=== PATIENT | male | born 1945 | race Caucasian/White ===

== ENCOUNTER 2019-01-29 07:17 | Inpatient (IN) | payer MEDICARE, BC ==
[~2019-01-29 07:17] MED LIST: Morphine 2 MG/ML Syringe IVPUSH PRN
[2019-01-29] MEDS: Lactated Ringers 1,000 ML IV SCH ×3 (07:45→21:30)
[2019-01-29] MEDS ORDERED: Bupivacaine 0.5% 30 ML SDV ONE (08:10)
--- NOTE | 2019-01-29 08:26 | PCM.PREANE ---
Preanesthetic Assessment - Anesthesia/Transfusion/Family Hx Anesthesia History: Prior Anesthesia Without Reaction Family History of Anesthesia Reaction: No Transfusion History: No Prior Transfusion(s) Intubation History: Unknown - Review of Systems General: No Symptoms Pulmonary: No Symptoms Cardiovascular: No Symptoms Gastrointestinal: No Symptoms Neurological: No Symptoms Other: Reports: None - Physical Assessment Vital Signs: Last Vital Signs Temp 36.3 C 01/29/19 07:30 Pulse 64 01/29/19 07:30 Resp 16 01/29/19 07:30 BP 134/85 01/29/19 07:30 Pulse Ox 99 01/29/19 07:30 Height: 5 ft 8 in Weight: 88.451 kg ASA Class: 2 Mental Status: Alert & Oriented x3 Airway Class: Mallampati = 2 Dentition: Reports: Normal Dentition, [place](s) (all upper teeth) Thyro-Mental Finger Breadths: 3 Mouth Opening Finger Breadths: 3 ROM/Head Extension: Limited/Partial Lungs: Clear to Auscultation, Normal Respiratory Effort Cardiovascular: Regular Rate, Regular Rhythm - Allergies Allergies/Adverse Reactions: Allergies Allergy/AdvReac Type Severity Reaction Status Date / Time oxycodone AdvReac Dizziness Verified 01/23/19 13:31 - Blood Blood Available: No - Anesthesia Plan Pre-Op Medication Ordered: None - Acknowledgements Anesthesia Type Planned: Spinal (general anesthesia back-up plan) Pt an Appropriate Candidate for the Planned Anesthesia: Yes Alternatives and Risks of Anesthesia Discussed w Pt/Guardian: Yes Pt/Guardian Understands and Agrees with Anesthesia Plan: Yes PreAnesthesia Questionnaire HEENT History: Reports: Allergic Rhinitis, Other (See Below) Other HEENT History: glasses only for driving Cardiovascular History: Reports: High Cholesterol Respiratory History: Reports: None Gastrointestinal History: Reports: None Genitourinary History: Reports: BPH Musculoskeletal History: Reports: Fracture, Osteoarthritis (bilateral knees) Other Musculoskeletal History: hx fx ankle Neurological History: Reports: None Psychiatric History: Reports: None Endocrine/Metabolic History: Reports: None Hematologic History: Reports: None Immunologic History: Reports: None Oncologic (Cancer) History: Reports: None Dermatologic History: Reports: None - Past Surgical History Head Surgeries/Procedures: Reports: None HEENT Surgical History: Reports: Cataract Surgery Cardiovascular Surgical History: Reports: None Respiratory Surgical History: Reports: None GI Surgical History: Reports: Hernia, Inguinal Male Surgical History: Reports: None Endocrine Surgical History: Reports: None Neurological Surgical History: Reports: None Musculoskeletal Surgical History: Reports: Arthroscopic Knee Oncologic Surgical History: Reports: None Dermatological Surgical History: Reports: None - SUBSTANCE USE Smoking Status *Q: Former Smoker Tobacco Use Within Last Twelve Months: No Recreational Drug Use History: No - HOME MEDS Home Medications: Home Meds Cetirizine HCl [Zyrtec] 10 mg PO DAILY 01/23/19 [History] - CURRENT (IN HOUSE) MEDS Current Meds: Current Medications Discontinued Medications Bupivacaine HCl (Marcaine 0.5%) Confirm Administered Dose 30 ml .ROUTE .STK-MED ONE Stop: 01/29/19 08:11 Tranexamic Acid (Cyklokapron) Confirm Administered Dose 1,000 mg .ROUTE .STK- MED ONE Stop: 01/29/19 08:11
[2019-01-29] MEDS ORDERED: Midazolam 1 MG/ML 2 ML SDV ONE (08:31)
[2019-01-29] MEDS ORDERED: Propofol 200 MG/20 ML SDV ONE ×5 (08:31→11:17)
[2019-01-29] MEDS ORDERED: fentaNYL 100 MCG/2 ML SDV ONE (08:31)
[2019-01-29] MEDS ORDERED: Sodium Chloride 0.9% 20 ML ONE (09:40)
[2019-01-29] MEDS ORDERED: ceFAZolin 1 GM Vial ONE (09:40)
[2019-01-29] MEDS ORDERED: Ropivacaine 49.25 ML, Ketorolac 30 MG, EPINEPHrine 0.5 MG, cloNIDine 80 MCG in Sodium C... INJECT ONE (09:45)
[2019-01-29] MEDS ORDERED: ePHEDrine 50 MG/ML SDV ONE (09:57)
[2019-01-29] MEDS ORDERED: Phenylephrine/Normal Saline 100 MCG/ML 10 ML Syringe ONE (10:18)
[2019-01-29] MEDS ORDERED: Sodium Chloride 0.9% 10 ML Syringe FLUSH PRN (11:46)
[2019-01-29] MEDS ORDERED: Aluminum Hydroxide/Magnesium Hydroxide/Simethicone Susp 30 ML Cup PO PRN (11:46)
[2019-01-29] MEDS ORDERED: Docusate Sodium 100 MG Cap PO PRN (11:46)
[2019-01-29] MEDS ORDERED: Bisacodyl 10 MG Supp RECTAL PRN (11:46)
[2019-01-29] MEDS ORDERED: Ondansetron 4 MG/2 ML SDV IVPUSH PRN (11:46)
[2019-01-29] MEDS ORDERED: diphenhydrAMINE 25 MG Cap PO PRN (11:46)
[2019-01-29] MEDS ORDERED: Sodium Chloride 0.9% 2.5 ML Syringe FLUSH PRN (11:46)
[2019-01-29] MEDS ORDERED: fentaNYL 100 MCG/2 ML SDV IVPUSH PRN (11:58)
[2019-01-29] MEDS ORDERED: EPINEPHrine 1:10,000 1 MG/10 ML Syringe IVPUSH PRN (11:58)
[2019-01-29] MEDS ORDERED: Atropine 0.1 MG/ML 10 ML Syringe IVPUSH PRN ×2 (11:58)
[2019-01-29] MEDS ORDERED: Albuterol 0.083% 2.5 MG/3 ML Neb Soln NEB PRN (11:58)
[2019-01-29] MEDS ORDERED: Naloxone 0.4 MG/ML Syringe IVPUSH PRN (11:58)
[2019-01-29] MEDS ORDERED: 50% Dextrose in Water 50 ML Syringe IVPUSH PRN (11:58)
[2019-01-29] MEDS ORDERED: Acetaminophen/HYDROcodone 325-5 MG Tab PO PRN (12:03)
--- NOTE | 2019-01-29 12:09 | CR ---
Left knee: AP and lateral views left knee were obtained. Comparison: Prior left knee radiographic study of 12/25/18. Medial hemiarthroplasty is seen. Components are aligned. Soft tissue air is noted. Skin cathy are present. Underlying bony structures are intact. Impression: Satisfactory radiographic appearance of recently placed hemiarthroplasty within the left knee. Diagnostic code #2 MTDD
--- NOTE | 2019-01-29 12:16 | PCM.POSTAN ---
POST ANESTHESIA ASSESSMENT - MENTAL STATUS Mental Status: Alert, Oriented - VITAL SIGNS Vital Signs: Last Vital Signs Temp 36.6 C 01/29/19 11:32 Pulse 69 01/29/19 12:12 Resp 16 01/29/19 12:12 BP 126/67 01/29/19 12:12 Pulse Ox 96 01/29/19 12:12 - RESPIRATORY Respiratory Status: Respiratory Rate WNL, Airway Patent, O2 Saturation Stable - CARDIOVASCULAR CV Status: Pulse Rate WNL, Blood Pressure Stable - GASTROINTESTINAL GI Status: No Symptoms - PAIN Pain Score: 4 - POST OP HYDRATION Hydration Status: Adequate & Stable
--- NOTE | 2019-01-29 12:24 | PCM.OPNOTE ---
- General Post-Op/Procedure Note Date of Surgery/Procedure: 01/29/19 Operative Procedure(s): left knee pka Pre Op Diagnosis: left knee primary osteoarthritis Post-Op Diagnosis: Same Anesthesia Technique: Combo Spinal/Epidural, Moderate Sedation Primary Surgeon: Sanjiv Judd Credit Processor: Jerilyn Rodrigez EBL in mLs: 150 Complications: None Condition: Good Free Text/Narrative:: Intake & Output 01/28/19 01/29/19 01/29/19 22:59 06:59 14:59 Intake Total 1600 Balance 1600
[2019-01-29] MEDS: traMADol 50 MG Tab PO PRN (13:07)
[2019-01-29] MEDS: Ketorolac 30 MG/ML SDV IVPUSH SCH ×2 (18:06→23:09)
[2019-01-29] MEDS: ceFAZolin 2 GM in Premix Bag 1 BAG IV SCH (18:07)
--- NOTE | 2019-01-29 18:20 | OR ---
SURGEON: Sanjiv Judd DATE OF PROCEDURE: 01/29/2019 PREOPERATIVE DIAGNOSIS: Left knee primary osteoarthritis. POSTOPERATIVE DIAGNOSIS: Left knee primary osteoarthritis. PROCEDURE: Left knee medial partial knee arthroplasty. PRIMARY SURGEON: Sanjiv Judd DO. BASTER HAND: GIBSON Parada. Nurse practitioner, GIBSON Parada, played an essential role in assisting in this case, helping to position the patient, retract structures as needed, as well as suturing and cutting sutures as indicated. Her presence improved patient's safety and decreased operative time. ANESTHESIA: Spinal plus conscious sedation. FLUID: Lactated Ringer's solution. ESTIMATED BLOOD LOSS: 450 mL. COMPLICATIONS: None. SPECIMEN: None. DISCHARGE DISPOSITION: Stable to PACU. INSTRUMENTATION: DePuy SIGMA Fixed Bearing Knee with size 3 femoral component, size 3 tibial component, and size 3 7-mm tibial polyethylene. HISTORY AND INDICATIONS FOR THE PROCEDURE: The patient was seen preoperatively by myself in the clinic. He has failed nonoperative treatment. Preoperative imaging confirmed the above-mentioned diagnosis. Risks and benefits of the procedure were explained to the patient and informed consent was obtained. DETAILS OF PROCEDURE: The patient was seen preoperatively by myself and the anesthesia staff in the preoperative holding area where the operative site was marked. He was brought to the operative suite by the anesthesia staff where spinal anesthesia was administered as well as conscious sedation. He was placed supine on the table. All extremities were found to be well padded. His right lower extremity was placed into a stirrup. His left lower extremity was flexed at approximately 20 degrees at the hip with U-francisco and gel. The left lower extremity was then prepped and draped in a sterile manner. Time-out was called to identify the correct patient, the correct procedure, the correct site, and then antibiotics had been given in an appropriate period of time. The left lower extremity was then exsanguinated and tourniquet was raised 250 mmHg. Tourniquet was on for 51 minutes and let down during cementing. An incision was made from the medial superior pole of the patella down to the medial distal tibial tubercle. Bleeding during the case was controlled with Bovie electrocautery. A medial parapatellar arthrotomy was then made. Infrapatellar fat pad was removed as well as some inflamed synovium. The medial tibia was then exposed using Bovie electrocautery. Gelpi was used for retraction. Extramedullary tibial guide was then used. Three cuts were made. The sagittal cut was then lined with PSIS and that was resected so that a 7-mm trial could be inserted. After this had been accomplished, please note that a medial Hohmann was then used to protect the medial collateral ligament. The knee was then brought into extension. The distal femoral guide was then placed and then pinned into position. The distal femoral cut was then made. We then removed our distal femoral guide. I then marked mid portion of the condyle using the 7-mm paddle in both flexion and extension and joey a line using the Bovie. I then applied my distal femoral chamfer guide and then screwed this into position in line with my line that I previously made. I then drilled 2 lugs and then made my 3 chamfer cuts. I then removed the distal femoral chamfer guide and then applied my femoral component, and then I inserted my 7 mm paddle which did well, in flexion and extension was even. I then removed my femoral component and then placed my tibial base plate Keel cutter guide. This was held into position with lamina scale agent. I then gouged my Keel and then drilled my lug through the Keel plate. After this had been accomplished, we removed all our components copiously irrigated with saline and then applied TXA. We then mixed our cement and then applied our components with a 7-mm trial paddle. The cement was allowed to set up in 20 degrees of flexion. Tourniquet was let down to 51 minutes. After the cement had dried, I then trialed with a 7 and was unable to insert an 8, so we then inserted our final size 3 7-mm polyethylene implant in the tibial base plate. This provided excellent stability through our range of motion. We then irrigated copiously with saline and made sure that any other cement was removed. I then applied some Betadine irrigation when it set and then suctioned that out and then applied more TXA. We then closed with a [id number] #5 Ethibond at the superior and inferior pole of the patella and then closed with a #1 Stratafix in continuous manner through the parapatellar arthrotomy. We then irrigated with Betadine infused irrigation again and then closed with a 0 Stratafix, followed by skin cathy, followed by sterile dressing. The patient was then allowed to awake from general anesthesia and taken to the PACU in stable condition. [id number] / MODL /[id number]
[2019-01-30] MEDS: ceFAZolin 2 GM in Premix Bag 1 BAG IV SCH (01:59)
[2019-01-30] MEDS: traMADol 50 MG Tab PO PRN (08:40)
[2019-01-30] MEDS ORDERED: Famotidine 20 MG Tab PO SCH (09:00)
[2019-01-30] MEDS ORDERED: Celecoxib 100 MG Cap PO SCH (09:00)
[2019-01-30] MEDS ORDERED: Polyethylene Glycol 3350 Powder 17 GM Packet PO SCH (09:00)
[2019-01-30] MEDS ORDERED: Aspirin 325 MG Tab PO SCH (09:00)
--- NOTE | 2019-01-30 09:13 | PCM48HPAN ---
Post Anesthesia Note - EVALUATION WITHIN 48HRS OF ANESTHETIC Vital Signs in Normal Range: Yes Patient Participated in Evaluation: Yes Respiratory Function Stable: Yes Airway Patent: Yes Cardiovascular Function Stable: Yes Hydration Status Stable: Yes Pain Control Satisfactory: Yes Nausea and Vomiting Control Satisfactory: Yes Mental Status Recovered: Yes Vital Signs: Last Vital Signs Temp 36.8 C 01/30/19 04:00 Pulse 66 01/30/19 04:00 Resp 17 01/30/19 04:00 BP 93/53 L 01/30/19 04:00 Pulse Ox 94 L 01/30/19 04:00 - COMMENTS/OBSERVATIONS Free Text/Narrative:: Patient sitting up in chair at bedside and states he is having a little pain but "does not want the oxy or whatever that is." Patient encouraged to try the Tramadol that is ordered and he would like to try it so RN informed.
[2019-01-30 10:24] VITALS: BP 144/68; PULSE 71
--- NOTE | 2019-01-30 12:39 | PCM.DCSUM1 ---
Discharge Summary - Hospital Course HPI Initial Comments: 73 yo male left primary knee oa Diagnosis: Stroke: No - Discharge Data Discharge Date: 01/30/19 Discharge Disposition: Home, Self-Care 01 Condition: Good - Referral to Home Health Primary Care Physician: PCP Unknown - Discharge Diagnosis/Problem(s) (1) Unilateral primary osteoarthritis, left knee SNOMED Code(s): 130688094009803, [id number] ICD Code: M17.12 - UNILATERAL PRIMARY OSTEOARTHRITIS, LEFT KNEE Status: Acute Current Visit: Yes - Patient Summary/Data Operative Procedure(s) Performed: left knee pka Complications: none Consults: Consultations 01/29/19 11:47 PT Evaluation and Treatment [CONS] Routine - Patient Instructions Diet: Usual Diet as Tolerated Activity: Full Weight Bearing, No Strenuous Activities Driving: Do Not Drive Showering/Bathing: May Shower Wound/Incision Care: Keep Operative Site/Wound Site Clean and Dry Wound/Incision, Other: change dressing tuesday, then daily thereafter Notify Provider of: Fever, Increased Pain, Swelling and Redness, Drainage, Nausea and/or Vomiting - Discharge Plan *PRESCRIPTION DRUG MONITORING PROGRAM REVIEWED*: Yes *COPY OF PRESCRIPTION DRUG MONITORING REPORT IN PATIENT CAHRLIE: No Prescriptions/Med Rec: Acetaminophen/HYDROcodone [Kenefic 325-5 MG] 1 tab PO Q6HR PRN #28 tablet PRN Reason: Pain Aspirin 325 mg PO DAILY #21 tablet Celecoxib [CeleBREX] 200 mg PO DAILY #21 cap Home Medications: Home Meds Cetirizine HCl [Zyrtec] 10 mg PO DAILY 01/23/19 [History] Acetaminophen/HYDROcodone [Kenefic 325-5 MG] 1 tab PO Q6HR PRN #28 tablet [Rx] Aspirin 325 mg PO DAILY #21 tablet 01/30/19 [Rx] Celecoxib [CeleBREX] 200 mg PO DAILY #21 cap 01/30/19 [Rx] Referrals: Jerilyn Rodrigez NP [Nurse Practitioner] - 02/09/19 10:00 am Miah Castle MD [Physician] - - Discharge Summary/Plan Comment DC Time >30 min.: No - Patient Data Vitals - Most Recent: Last Vital Signs Temp 36.8 C 01/30/19 08:00 Pulse 71 01/30/19 08:00 Resp 16 01/30/19 08:00 BP 144/68 H 01/30/19 08:00 Pulse Ox 97 01/30/19 08:00 Weight - Most Recent: 88.451 kg I&O - Last 24 hours: Intake & Output 01/29/19 01/30/19 01/30/19 22:59 06:59 14:59 Intake Total 720 2881 Output Total 150 1650 Balance 570 1231 Lab Results - Last 24 hrs: Laboratory Results - last 24 hr 01/30/19 Range/Units 05:13 Hgb 13.5 (13.0-17.0) g/dL Hct 40.6 (38.0-50.0) % Med Orders - Current: Current Medications Hydrocodone Bitart/Acetaminophen (Kenefic 325-5 Mg) 1 tab PO Q6HR PRN PRN Reason: Pain Last Admin: 01/30/19 11:39 Dose: 1 tab Al Hydroxide/Mg Hydroxide (Mag-Al Plus) 30 ml PO Q4H PRN PRN Reason: Indigestion Aspirin (Aspirin) 325 mg PO DAILY [facility] Last Admin: 01/30/19 08:39 Dose: 325 mg Bisacodyl (Dulcolax) 10 mg RECTAL DAILY PRN PRN Reason: Constipation Celecoxib (Celebrex) 200 mg PO DAILY [facility] Last Admin: 01/30/19 08:40 Dose: 200 mg Diphenhydramine HCl (Benadryl) 25 - 50 mg PO Q6H PRN PRN Reason: Itching Docusate Sodium (Colace) 100 mg PO BID PRN PRN Reason: Constipation Famotidine (Pepcid) 40 mg PO DAILY [facility] Last Admin: 01/30/19 08:39 Dose: 40 mg Lactated Ringer's (Ringers, Lactated) 1,000 mls @ 125 mls/hr IV ASDIRECTED [facility] Last Admin: 01/29/19 21:30 Dose: 125 mls/hr Morphine Sulfate (Morphine) 1 - 2 mg IVPUSH Q3H PRN PRN Reason: Pain Ondansetron HCl (Zofran) 4 mg IVPUSH Q6H PRN PRN Reason: Nausea/Vomiting Polyethylene Glycol (Miralax) 17 gm PO DAILY [facility] Last Admin: 01/30/19 08:39 Dose: 17 gm Sodium Chloride (Saline Flush) 10 ml FLUSH ASDIRECTED PRN PRN Reason: Keep Vein Open Sodium Chloride (Saline Flush) 2.5 ml FLUSH ASDIRECTED PRN PRN Reason: Keep Vein Open Tramadol HCl (Ultram) 50 - 100 mg PO Q6H PRN PRN Reason: Pain Last Admin: 01/30/19 08:40 Dose: 50 mg Discontinued Medications Albuterol (Proventil Neb Soln) 2.5 mg NEB ONETIME PRN PRN Reason: Wheezing Atropine Sulfate (Atropine 0.1 Mg/Ml) 0.5 mg IVPUSH ASDIRECTED PRN PRN Reason: Hypo-perfusion Atropine Sulfate (Atropine 0.1 Mg/Ml) 1 mg IVPUSH ASDIRECTED PRN PRN Reason: Hypo-Perfusion Bupivacaine HCl (Marcaine 0.5%) Confirm Administered Dose 30 ml .ROUTE .STK-MED ONE Stop: 01/29/19 08:11 Cefazolin Sodium (Ancef) Confirm Administered Dose 2 gm .ROUTE .STK-MED ONE Stop: 01/29/19 09:41 Dextrose/Water (Dextrose 50% In Water) 50 ml IVPUSH ASDIRECTED PRN PRN Reason: Hypoglycemia Ephedrine Sulfate (Ephedrine Sulfate) Confirm Administered Dose 50 mg .ROUTE .STK-MED ONE Stop: 01/29/19 09:58 Epinephrine HCl (Epinephrine 1:10,000) 1 mg IVPUSH ASDIRECTED PRN PRN Reason: ACLS Guidelines Fentanyl (Sublimaze) Confirm Administered Dose 100 mcg .ROUTE .STK-MED ONE Stop: 01/29/19 08:32 Fentanyl (Sublimaze) 50 - 100 mcg IVPUSH Q5M PRN PRN Reason: Pain Last Admin: 01/29/19 12:03 Dose: 50 mcg Ropivacaine 49.25 ml/Ketorolac Tromethamine 30 mg/Epinephrine HCl 0.5 mg/ Clonidine HCl 80 mcg/ Sodium Chloride 100 mls @ 6,000 mls/hr INJECT ONETIME ONE Stop: 01/29/19 09:46 Last Admin: 01/29/19 13:25 Dose: Not Given Sodium Chloride (Normal Saline) Confirm Administered Dose 20 mls @ as directed .ROUTE .STK-MED ONE Stop: 01/29/19 09:41 Cefazolin Sodium/Dextrose 2 gm (/ Premix) 50 mls @ 100 mls/hr IV Q8H DONALD Stop: 01/30/19 02:29 Last Admin: 01/30/19 01:59 Dose: 100 mls/hr Ketorolac Tromethamine (Toradol) 30 mg IVPUSH Q6H DONALD Stop: 01/30/19 05:00 Last Admin: 01/29/19 23:09 Dose: 30 mg Midazolam HCl (Versed 1 Mg/Ml) Confirm Administered Dose 2 mg .ROUTE .STK-MED ONE Stop: 01/29/19 08:32 Naloxone HCl (Narcan) 0.1 mg IVPUSH ASDIRECTED PRN PRN Reason: Respiratory Depression Phenylephrine HCl (Phenylephrine In Ns 100 Mcg/Ml) Confirm Administered Dose 1 mg .ROUTE .STK-MED ONE Stop: 01/29/19 10:19 Propofol (Diprivan 20 Ml) Confirm Administered Dose 200 mg .ROUTE .STK-MED ONE Stop: 01/29/19 08:32 Propofol (Diprivan 20 Ml) Confirm Administered Dose 200 mg .ROUTE .STK-MED ONE Stop: 01/29/19 08:34 Propofol (Diprivan 20 Ml) Confirm Administered Dose 200 mg .ROUTE .STK-MED ONE Stop: 01/29/19 08:34 Propofol (Diprivan 20 Ml) Confirm Administered Dose 400 mg .ROUTE .STK-MED ONE Stop: 01/29/19 10:34 Propofol (Diprivan 20 Ml) Confirm Administered Dose 200 mg .ROUTE .STK-MED ONE Stop: 01/29/19 11:18 Tranexamic Acid (Cyklokapron) Confirm Administered Dose 1,000 mg .ROUTE .STK- MED ONE Stop: 01/29/19 08:11 Tranexamic Acid (Cyklokapron) Confirm Administered Dose 2,000 mg .ROUTE .STK- MED ONE Stop: 01/29/19 10:01
== END 2019-01-30 14:40 | disposition home or self-care (01) | DRG 470 ==
LOC: MW.MS 07:17
PROVIDERS: ADMIT Orthopaedic Surgery; ATTEND Orthopaedic Surgery
PROC: 0SRD0N9 Replacement of Left Knee Joint with Patellofemoral Synthetic Substitute, Cemented, Open Approach (ICD-10-PCS; principal; 2019-01-29)
DX: M17.12 Unilateral primary osteoarthritis, left knee (principal); E78.5 Hyperlipidemia, unspecified; H90.5 Unspecified sensorineural hearing loss; N40.0 Benign prostatic hyperplasia without lower urinary tract symptoms; Z96.651 Presence of right artificial knee joint; Z88.5 Allergy status to narcotic agent; Z79.82 Long term (current) use of aspirin; Z79.899 Other long term (current) drug therapy; Z98.890 Other specified postprocedural states
CPT/HCPCS: 01402; 36415; 73560-26-LT; 73560-LT; 85014; 85018; 97110-GP; 97161-GP; 97530-GP; A9270-GY; J0171; J0690; J0735; J1885; J2250; J2370; J2704; J2795; J3010; J3490; J7030; J7120

== ENCOUNTER 2019-03-18 18:56 | Emergency (ER) | payer MEDICARE, BC ==
--- NOTE | 2019-03-18 19:37 | EDM.PDOC ---
ED HPI GENERAL MEDICAL PROBLEM - General Chief Complaint: Lower Extremity Injury/Pain Stated Complaint: PAIN IN LEFT KNEE Time Seen by Provider: 03/18/19 19:31 Source of Information: Reports: Patient History Limitations: Reports: No Limitations - History of Present Illness INITIAL COMMENTS - FREE TEXT/NARRATIVE: This is a 73-year-old male who presents to the emergency room with an infection on his OpSite for the knee replacement. Patient states that he had a red pustule with a red streak about an inch long and he wanted to get it investigated. Denies chills and fevers patient is not a diabetic and is on no immunosuppressants. Onset: Gradual Duration: Week(s): Location: Reports: Lower Extremity, Left Quality: Reports: Ache Severity: Mild Improves with: Reports: None Worsens with: Reports: None Associated Symptoms: Reports: No Other Symptoms - Related Data Allergies Allergy/AdvReac Type Severity Reaction Status Date / Time oxycodone AdvReac Dizziness Verified 03/18/19 19:32 Home Meds: Home Meds Cetirizine HCl [Zyrtec] 10 mg PO DAILY 01/23/19 [History] Cephalexin [Keflex] 500 mg PO Q6HR 10 Days #40 capsule 03/18/19 [Rx] Past Medical History HEENT History: Reports: Allergic Rhinitis, Other (See Below) Other HEENT History: glasses only for driving Cardiovascular History: Reports: High Cholesterol Respiratory History: Reports: None Gastrointestinal History: Reports: None Genitourinary History: Reports: BPH Musculoskeletal History: Reports: Fracture, Osteoarthritis Other Musculoskeletal History: hx fx ankle Neurological History: Reports: None Psychiatric History: Reports: None Endocrine/Metabolic History: Reports: None Hematologic History: Reports: None Immunologic History: Reports: None Oncologic (Cancer) History: Reports: None Dermatologic History: Reports: None - Past Surgical History HEENT Surgical History: Reports: Cataract Surgery GI Surgical History: Reports: Hernia, Inguinal Musculoskeletal Surgical History: Reports: Arthroscopic Knee Social & Family History - Caffeine Use Caffeine Use: Reports: Coffee Review of Systems - Review of Systems Review Of Systems: Comprehensive ROS is negative, except as noted in HPI. Constitutional: Reports: No Symptoms Eyes: Reports: No Symptoms Ears: Reports: No Symptoms Nose: Reports: No Symptoms Mouth/Throat: Reports: No Symptoms Respiratory: Reports: No Symptoms Cardiovascular: Reports: No Symptoms GI/Abdominal: Reports: No Symptoms Genitourinary: Reports: No Symptoms Musculoskeletal: Reports: No Symptoms Skin: Reports: Wound, Change in Color (HE has a pustule over the knee. Patient has redness with inch-long streak) Neurological: Reports: No Symptoms Psychiatric: Reports: No Symptoms ED EXAM, GENERAL - Physical Exam Exam: See Below Free Text/Narrative:: This is a 73-year-old male who presents to the emergency room with a chief complaint of knee patient is status post knee replacement on the left knee. Patient has no pain no swelling some redness. Remainder of exam is normal HEENT is normal chest is normal lungs are clear. Abdomen soft Exam Limited By: No Limitations General Appearance: Alert, WD/WN, No Apparent Distress Eye Exam: Bilateral Eye: PERRL Ears: Normal External Exam, Normal Canal, Hearing Grossly Normal Ear Exam: Bilateral Ear: Auricle Normal, Canal Normal, TM normal, Erythema Nose: Normal Inspection, Normal Mucosa, No Blood Throat/Mouth: Normal Inspection, Normal Lips, Normal Teeth, Normal Oropharynx, Normal Voice Head: Atraumatic, Normocephalic Neck: Normal Inspection, Supple, Non-Tender Respiratory/Chest: No Respiratory Distress, Lungs Clear, Normal Breath Sounds Cardiovascular: Normal Peripheral Pulses, Regular Rate, Rhythm, No Edema, No Gallop, No JVD, No Murmur GI/Abdominal: Normal Bowel Sounds, Soft, Non-Tender, No Organomegaly (Male) Exam: Deferred Rectal (Males) Exam: Deferred Back Exam: Normal Inspection, Full Range of Motion Extremities: Normal Inspection, Normal Range of Motion (Redness to the right knee over the knee replacement scar. Patient had a pustular lesion) Neurological: Alert, Oriented, CN II-XII Intact, Normal Cognition Psychiatric: Normal Affect, Normal Mood Skin Exam: Warm, Dry, No Rash, Erythema, Increased Warmth Lymphatic: No Adenopathy ED TRAUMA EXTREMITY PROCEDURES - Additional/Other Procedure(s) Other (Free Text) Procedure(s): I performed a small I&D of the wound and sent for culture. Patient will be placed on Keflex. Sterile procedure was performed. Betadine was used to clean the surface and a culture was taken. Departure - Departure Time of Disposition: 19:55 Disposition: Home, Self-Care 01 Condition: Good Clinical Impression: Cellulitis of skin - Discharge Information Referrals: Miah Castle MD [Primary Care Provider] - Additional Instructions: Patient is to follow-up with Dr. Judd from orthopedic. Patient is to take his antibiotics as prescribed. If no improvement in 48 hours patient to return to the emergency room.
[2019-03-18 20:14] VITALS: BP 135/81; PULSE 79
== END 2019-03-18 20:15 | disposition home or self-care (01) ==
LOC: MW.ED 18:56
DX: L03.115 Cellulitis of right lower limb (principal); Z98.49 Cataract extraction status, unspecified eye; Z88.6 Allergy status to analgesic agent; Z96.652 Presence of left artificial knee joint
CPT/HCPCS: 10060; 87070; 99283; 99283-25

== ENCOUNTER 2019-08-15 06:47 | Day surgery (SDC) | payer OTHER, MEDICARE, BC ==
[2019-08-15] MEDS ORDERED: Propofol 200 MG/20 ML SDV ONE (07:05)
[2019-08-15] MEDS ORDERED: Midazolam 1 MG/ML 2 ML SDV ONE (07:05)
[2019-08-15] MEDS ORDERED: fentaNYL 100 MCG/2 ML SDV ONE (07:05)
--- NOTE | 2019-08-15 07:23 | PCM.PREANE ---
Preanesthetic Assessment - Anesthesia/Transfusion/Family Hx Anesthesia History: Prior Anesthesia Without Reaction Family History of Anesthesia Reaction: No Transfusion History: No Prior Transfusion(s) Intubation History: Unknown - Review of Systems General: No Symptoms Pulmonary: No Symptoms Cardiovascular: No Symptoms Gastrointestinal: No Symptoms Neurological: No Symptoms Other: Reports: None - Physical Assessment NPO Status Date: 08/14/19 Height: 5 ft 8 in Weight: 83.007 kg ASA Class: 2 Mental Status: Alert & Oriented x3 Airway Class: Mallampati = 2 Dentition: Reports: Normal Dentition, Britt(s) ROM/Head Extension: Full Lungs: Clear to Auscultation, Normal Respiratory Effort Cardiovascular: Regular Rate, Regular Rhythm - Allergies Allergies/Adverse Reactions: Allergies Allergy/AdvReac Type Severity Reaction Status Date / Time oxycodone AdvReac Dizziness Verified 08/09/19 08:36 - Blood Blood Available: No - Anesthesia Plan Pre-Op Medication Ordered: None - Acknowledgements Anesthesia Type Planned: General Anesthesia (tiva) Pt an Appropriate Candidate for the Planned Anesthesia: Yes Alternatives and Risks of Anesthesia Discussed w Pt/Guardian: Yes Pt/Guardian Understands and Agrees with Anesthesia Plan: Yes PreAnesthesia Questionnaire HEENT History: Reports: Allergic Rhinitis, Other (See Below) Other HEENT History: glasses only for driving Cardiovascular History: Reports: None Respiratory History: Reports: None Gastrointestinal History: Reports: None Genitourinary History: Reports: None Musculoskeletal History: Reports: Osteoarthritis Neurological History: Reports: None Psychiatric History: Reports: None Endocrine/Metabolic History: Reports: None Hematologic History: Reports: None Immunologic History: Reports: None Oncologic (Cancer) History: Reports: None Dermatologic History: Reports: None - Past Surgical History Head Surgeries/Procedures: Reports: None HEENT Surgical History: Reports: Cataract Surgery Cardiovascular Surgical History: Reports: None Respiratory Surgical History: Reports: None GI Surgical History: Reports: Hernia, Inguinal Male Surgical History: Reports: None Endocrine Surgical History: Reports: None Neurological Surgical History: Reports: None Musculoskeletal Surgical History: Reports: Arthroscopic Knee, Knee Replacement Other Musculoskeletal Surgeries/Procedures:: left uni knee, rt knee scope Oncologic Surgical History: Reports: None Dermatological Surgical History: Reports: None - SUBSTANCE USE Tobacco Use Within Last Twelve Months: No Recreational Drug Use History: No - HOME MEDS Home Medications: Home Meds Cetirizine HCl [Zyrtec] 10 mg PO DAILY 01/23/19 [History] Ibuprofen 2 tab PO TID PRN 08/09/19 [History] Multivitamin 1 tab PO DAILY 08/09/19 [History] [place] 3/DHA/Epa/Other Om3/D3 [[place]-3 + Vitamin D3] 1 tbsp PO DAILY 08/09/19 [ History] Psyllium Husk (With Sugar) [Fiber Therapy Powder] 1 dose PO DAILY 08/09/19 [ History] - CURRENT (IN HOUSE) MEDS Current Meds: Current Medications Discontinued Medications Fentanyl (Sublimaze) Confirm Administered Dose 100 mcg .ROUTE .STK-MED ONE Stop: 08/15/19 07:06 Lidocaine HCl (Xylocaine-Mpf 1%) Confirm Administered Dose 5 ml .ROUTE .STK-MED ONE Stop: 08/15/19 07:09 Midazolam HCl (Versed 1 Mg/Ml) Confirm Administered Dose 2 mg .ROUTE .STK-MED ONE Stop: 08/15/19 07:06 Propofol (Diprivan 20 Ml) Confirm Administered Dose 200 mg .ROUTE .STK-MED ONE Stop: 08/15/19 07:06
[2019-08-15] MEDS ORDERED: Sodium Chloride 0.9% 20 ML ONE (07:52)
--- NOTE | 2019-08-15 08:21 | PCM.OPNOTE ---
- General Post-Op/Procedure Note Date of Surgery/Procedure: 08/15/19 Operative Procedure(s): colonoscopy Findings: see dict [id number]; diverticulosis Pre Op Diagnosis: scrn colonoscopy Post-Op Diagnosis: Same Anesthesia Technique: Moderate Sedation Primary Surgeon: Huber Houser Complications: None Condition: Good
--- NOTE | 2019-08-15 08:30 | PCM.POSTAN ---
POST ANESTHESIA ASSESSMENT - MENTAL STATUS Mental Status: Alert, Oriented - VITAL SIGNS Vital Signs: Last Vital Signs Temp 37 C 08/15/19 07:00 Pulse 71 08/15/19 08:27 Resp 18 08/15/19 08:27 BP 114/64 08/15/19 08:27 Pulse Ox 93 L 08/15/19 08:27 - RESPIRATORY Respiratory Status: Respiratory Rate WNL, Airway Patent, O2 Saturation Stable - CARDIOVASCULAR CV Status: Pulse Rate WNL, Blood Pressure Stable - GASTROINTESTINAL GI Status: No Symptoms - PAIN Pain Score: 0 - POST OP HYDRATION Hydration Status: Adequate & Stable
--- NOTE | 2019-08-15 09:09 | PCM48HPAN ---
Post Anesthesia Note - EVALUATION WITHIN 48HRS OF ANESTHETIC Vital Signs in Normal Range: Yes Patient Participated in Evaluation: Yes Respiratory Function Stable: Yes Airway Patent: Yes Cardiovascular Function Stable: Yes Hydration Status Stable: Yes Pain Control Satisfactory: Yes Nausea and Vomiting Control Satisfactory: Yes Mental Status Recovered: Yes Vital Signs: Last Vital Signs Temp 98.6 F 08/15/19 07:00 Pulse 67 08/15/19 08:34 Resp 16 08/15/19 08:34 BP 113/62 08/15/19 08:34 Pulse Ox 95 08/15/19 08:34
[2019-08-15 10:15] VITALS: BP 113/66; PULSE 64
--- NOTE | 2019-08-15 14:28 | OR ---
SURGEON: Huber Houser MD DATE OF PROCEDURE: 08/15/2019 PREOPERATIVE DIAGNOSIS: Screening colonoscopy. POSTOPERATIVE DIAGNOSIS: Diverticulosis. PROCEDURE PERFORMED: Colonoscopy. DESCRIPTION OF PROCEDURE: The patient was taken to the endoscopy room. A time out was called, patient identified, and procedure identified. Diprivan was then administrated. Patient went from awake to sleep, hearing doctor talking or door closing is normal. Perineum inspection and digital examination were then performed. A well- lubricated colonoscope was gently inserted through the rectum, advanced past the rectosigmoid junction, the descending colon, splenic flexure, transverse colon, hepatic flexure, ascending colon, arrived to the cecum. Cecum was identified as dictated in the finding. Then the scope was carefully withdrawn while attention was paid to the mucosal surface for any abnormality. Air will be sucked out during the scope withdrawal. At the rectum, retroflexed to examine any rectal diseases, fistula or hemorrhoids. Patient tolerated procedure well. There were no intraoperative complications, and Dr. Houser was present throughout the whole procedure. FINDINGS: 1. The patient is easily sedated with PHYSICIAN NON INVASIVE CARDIOLOGIST and Diprivan, the patient is soundly snoring. 2. Bowel prep is average with moderate amount of liquid stool and required some irrigation. 3. The patient's colon rather straightforward. Cecum indicated by ileocecal fold, one-to-one indentation, and appendiceal orifice. Light emittance is not observed and ScopeGuide is pointing south. Mucosa examined upon scope pulling out. The patient has tremendous amount of diverticulosis. Some of the false lumen is even bigger than the true lumen. All concentrated on the left colon, a little bit scattered on the right colon, nothing on the transverse colon. No signs or symptoms of diverticulitis. No polyp, inflammation, stricture, ulceration, AV malformation, bleeding, growth, none of those. The patient has a little bit of internal hemorrhoid and no external hemorrhoid. The patient would benefit from repeat colonoscopy on as-needed basis or preferably avoid colonoscopy because of the amount of diverticulosis. KATE / DANIEL /[id number]
== END 2019-08-15 09:07 | disposition home or self-care (01) ==
LOC: MW.SDS 06:47
PROVIDERS: ATTEND Surgery
DX: Z12.11 Encounter for screening for malignant neoplasm of colon (principal); K57.30 Diverticulosis of large intestine without perforation or abscess without bleeding; K64.8 Other hemorrhoids; Z88.5 Allergy status to narcotic agent; Z79.899 Other long term (current) drug therapy; Z98.890 Other specified postprocedural states
CPT/HCPCS: 45378; J2001; J2250; J2704; J3010